=== PATIENT | female | born 1995 | race Two or more races ===

== ENCOUNTER 2016-11-07 10:40 | Emergency (ER) | payer OTHER ==
[2016-11-07 11:08] VITALS: BP 118/52
--- NOTE | 2016-11-07 12:04 | CR ---
EXAMINATION: Right foot and right ankle HISTORY: Pain COMPARISON: None TECHNIQUE: 3 views of the right ankle and 2 views of the right foot FINDINGS: Pain IMPRESSION: There is no acute osseous abnormality, dislocation, or fracture. Ankle mortise, talar dom e, and soft tissues appear normal. Bone mineralization is otherwise normal.
--- NOTE | 2016-11-07 12:27 | EDM.PDOC ---
ED HPI GENERAL MEDICAL PROBLEM - General Chief Complaint: Lower Extremity Injury/Pain Stated Complaint: FELL DOWN STAIRS AT HOME Time Seen by Provider: 11/07/16 11:10 Source of Information: Reports: Patient History Limitations: Reports: No Limitations - History of Present Illness INITIAL COMMENTS - FREE TEXT/NARRATIVE: HISTORY AND PHYSICAL: History of present illness: [Fell down the stairs last night at her home resulting in R foot and ankle pain for which she presents to the ER. Complains of pain to her lateral right ankle and bruising to the top of her foot. Has had pain with weightbearing and movement of her right foot. Radiation of pain into her left lower leg. No numbness or tingling. No other injuries. ] Review of systems: As per history of present illness and below otherwise all systems reviewed and negative. Past medical history: As per history of present illness and as reviewed below otherwise noncontributory. Surgical history: As per history of present illness and as reviewed below otherwise noncontributory. Social history: No reported history of drug or alcohol abuse. Family history: As per history of present illness and as reviewed below otherwise noncontributory. Physical exam: HEENT: Atraumatic, normocephalic. Extremities: Mild ecchymosis present to R anterior lower leg. No abnormalities to the malleoli. negative for cords or calf pain. Neurovascular unremarkable. Neuro: Awake, alert, oriented. Motor and sensory unremarkable throughout. Exam nonfocal. Diagnostics: [Right ankle x-ray, right foot x-ray] Impression: [Right ankle and foot pain] Plan: [Discussed with patient that her x-rays are completely normal. Reviewed that she has a sprain. Rest, ice, walking boot that she brought from a friend, elevation. Tylenol or ibuprofen as needed for discomfort. Follow-up with PCP. She is in agreement with today's discussion. All of her questions are answered and concerns are addressed.] Definitive disposition and diagnosis as appropriate pending reevaluation and review of above. Right Ankle Pain Score (Numeric/FACES): 6 - Related Data Allergies Allergy/AdvReac Type Severity Reaction Status Date / Time No Known Allergies Allergy Verified 11/07/16 11:08 Home Meds: Home Meds . 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: Reports: None Musculoskeletal History: Reports: None Neurological History: Reports: None Psychiatric History: Reports: None Endocrine/Metabolic History: Reports: None Hematologic History: Reports: None Immunologic History: Reports: None Oncologic (Cancer) History: Reports: None Dermatologic History: Reports: None - Infectious Disease History Infectious Disease History: Reports: None - Past Surgical History Head Surgeries/Procedures: Reports: None HEENT Surgical History: Reports: None Cardiovascular Surgical History: Reports: None Respiratory Surgical History: Reports: None GI Surgical History: Reports: None Female Surgical History: Reports: None Endocrine Surgical History: Reports: None Neurological Surgical History: Reports: None Musculoskeletal Surgical History: Reports: None Dermatological Surgical History: Reports: None Social & Family History - Family History Family Medical History: Noncontributory - Tobacco Use Smoking Status *Q: Never Smoker Second Hand Smoke Exposure: No - Caffeine Use Caffeine Use: Reports: None - Recreational Drug Use Recreational Drug Use: No Review of Systems - Review of Systems Review Of Systems: ROS reveals no pertinent complaints other than HPI. ED EXAM, GENERAL - Physical Exam Exam: See Below Course - Vital Signs Last Recorded V/S: Last Vital Signs Temp 98.2 F 11/07/16 11:02 Pulse 78 11/07/16 11:02 Resp 16 11/07/16 11:02 BP 118/52 L 11/07/16 11:02 Pulse Ox 98 11/07/16 11:02 Departure - Departure Time of Disposition: 12:25 Disposition: Home, Self-Care 01 Condition: Good Clinical Impression: Ankle pain, right - Discharge Information Instructions: Ankle Pain Referrals: PCP,None [Primary Care Provider] - Forms: ED Department Discharge Additional Instructions: The following information is given to patients seen in the emergency department who are being discharged to home. This information is to outline your options for follow-up care. We provide all patients seen in our emergency department with a follow-up referral. The need for follow-up, as well as the timing and circumstances, are variable depending upon the specifics of your emergency department visit. If you don't have a primary care physician on staff, we will provide you with a referral. We always advise you to contact your personal physician following an emergency department visit to inform them of the circumstance of the visit and for follow-up with them and/or the need for any referrals to a consulting specialist. The emergency department will also refer you to a specialist when appropriate. This referral assures that you have the opportunity for follow-up care with a specialist. All of these measure are taken in an effort to provide you with optimal care, which includes your follow-up. Under all circumstances we always encourage you to contact your private physician who remains a resource for coordinating your care. When calling for follow-up care, please make the office aware that this follow-up is from your recent emergency room visit. If for any reason you are refused follow-up, please contact the [facility] emergency department at and asked to speak to the emergency department charge nurse. [facility] [address] [place] [id number] Follow-up with primary care provider in 48-72 hours as we discussed. Rest, ice, compression, elevation. Return to ER as needed as discussed.
== END 2016-11-07 12:35 | disposition home or self-care (01) ==
LOC: MW.ED 10:40
DX: S80.11XA Contusion of right lower leg, initial encounter (principal); W10.8XXA Fall (on) (from) other stairs and steps, initial encounter; Y92.009 Unspecified place in unspecified non-institutional (private) residence as the place of occurrence of the external cause
CPT/HCPCS: 73610-26-RT; 73610-RT; 73620-26-RT; 73620-RT; 99282; 99283